=== PATIENT | female | born 1990 | race Asian ===

== ENCOUNTER → 2019-05-21 | Outpatient (CLI) | payer OTHER | LOC: COL.RAD 10:17 | DX: E04.1 Nontoxic single thyroid nodule (principal); E03.9 Hypothyroidism, unspecified ==

== ENCOUNTER → 2019-08-18 | Outpatient (CLI) | payer OTHER | LOC: COL.RAD 10:57 | DX: I10 Essential (primary) hypertension (principal); N28.1 Cyst of kidney, acquired; E04.1 Nontoxic single thyroid nodule; E03.9 Hypothyroidism, unspecified | CPT/HCPCS: Q9967 ==

== ENCOUNTER → 2020-05-27 | Outpatient (CLI) | payer OTHER | LOC: COL.RAD 13:24 | DX: E01.0 Iodine-deficiency related diffuse (endemic) goiter (principal) ==